=== PATIENT | male | born 1970 | race Caucasian/White ===

== ENCOUNTER 2020-05-06 12:00 | Inpatient (IN) | payer SELFPAY ==
[2020-05-06] VITALS (9 sets, daily range): BP systolic 132–162; BP diastolic 88–110; PULSE 108–123; RESP 17–20; TEMP 36.5–36.9; O2SAT 93–98; BMI 44.0
--- NOTE | 2020-05-06 12:21 | W.ED.NAVMDI ---
HPI - Nausea/Vomiting/Diarrhea General: Chief complaint: Nausea/Vomiting/Diarrhea Stated complaint: n/v/d Time Seen by Provider: 05/06/20 12:13 History of Present Illness: HPI Narrative: This patient is a 50-year-old male presenting today with abdominal pain, vomiting, diarrhea since Thursday. He said he started feeling poorly Thursday evening after eating some leftover [place] fried chicken. It was only a day old but he thought maybe it had given him food poisoning. He has been having vomiting and diarrhea ever since then and has not been able to keep anything down since Thursday evening. Sometimes he just has dry heaves other times throws up a significant amount. There is no blood in the emesis or in the stool. There is no black tarry stools. He was having some severe lower abdominal pain across his entire lower abdomen last night but this morning threw up a large amount and said the pain went away after that. He had his appendix out as a child. He has not had any other abdominal surgeries. He does not have a primary care physician and does not normally take any medications. He does use chewing tobacco and drinks a lot of coffee. He has not had either since Thursday. He went to urgent care on Thursday and was given omeprazole and ondansetron. He does not feel like they are helping at all. He denies fever and says he has been sweating but that is normal for him. MD elicited complaint: nausea, vomiting, diarrhea and abdominal pain Onset (ago): day(s) (5) Associated nausea: Yes Associated abdominal pain: Yes Location of pain: RLQ and LLQ Severity: moderate Quality: cramping and aching Exacerbating factors: eating and movement Relieving factors: vomiting Associated symtoms: Reports nausea; Denies change in vision, chest pain, fatigue, headache(s) or malaise Review of Systems General: Reports: 10 or more systems reviewed and unremarkable except in HPI and below Const: Denies: fever(s), chills, fatigue or malaise Eyes: Denies: change in vision ENMT: Denies: odynophagia Card: Denies: chest pain or swelling of feet/ankles Resp: Denies: dyspnea, productive cough or non-productive cough GI: Reports: abdominal pain, nausea, vomiting, diarrhea and belching (Foul taste) : Denies: flank pain Musc: Denies: neck pain or back pain Skin/Breast: Denies: rash Neuro: Denies: headache(s), numbness in extremities or weakness in extremities Connor/Lymph: Denies: easy bruising or easy bleeding PFSH ED PFSH: Medical History Morbid obesity Surgical History History of appendectomy Family History Father CAD (coronary artery disease) Grandfather Diabetes Social History (Updated 05/06/20 @ 16:50 by Shira Mondragon MD) Smoking and tobacco status: never smoked Alcohol intake: current Alcohol intake frequency: holidays/special occasions only Substance/Drug Use: never Marital status: Physical Exam Const: COMMON NORMALS: patient oriented x3 and alert GENERAL APPEARANCE: ill appearing NUTRITIONAL APPEARANCE: obese OTHER: Pale, diaphoretic HENMT: HEAD & SCALP: normal to inspection FACE & SINUS: normal facial exam Eye: GENERAL EYE: appearance normal, both eyes and all related structures Neck/C-Spine: COMMON NORMALS: supple, no meningeal signs and no JVD Chest: COMMONS NORMALS: normal inspection of the chest Resp: COMMON NORMALS: normal respiratory effort, No use of accessory muscles and clear to auscultation bilaterally AUSCULTATION: clear to auscultation bilaterally Cardio: COMMON NORMALS: no JVD, regular rate, regular rhythm and No murmurs present (Cardio) RATE: regular rate and tachycardic (125) RHYTHM: regular rhythm GI: AUSCULTATION: Yes normoactive bowel sounds PALPATION: Yes Firmness to palpation present (GI) PERCUSSION: normal to percussion Back/Pelvis: COMMON NORMALS: thoracic and lumbar spine normal to inspection Extremity: COMMON NORMALS: normal to inspection Neuro: COMMON NORMALS: patient oriented x3, moves all extremities, no focal motor deficits and no sensory deficits noted SENSORIUM/ORIENTATION: Yes alert MENINGEAL SIGNS: Yes no meningeal signs Psych: COMMON NORMALS: mental status grossly normal, cooperative and normal affect Skin: COMMON NORMALS: no rashes or lesions noted and turgor normal GENERAL SKIN EXAM: no rashes or lesions noted and turgor normal Course ED course: The patient looked somewhat better on my reassessment just prior to admission. He had some color back in his face but still was having nausea and discomfort. His heart rate is still above 100, around 110. Blood pressure remains on the high side. CT showed inflammation in the small bowel with partial small bowel obstruction versus ileus. I spoke with Dr. Benitez who felt it would be a medical admission. I spoke with Dr. Mondragon who will admit but would like Dr. Benitez to consult. The patient requested something to drink and I did let him have some sips of water. I darty given Rocephin for presumed UTI. He has now had Zofran and Flagyl ordered. He has had 2 L of fluid. He had Zofran and then Reglan. He continues to decline pain medication. Reevaluation(s): Reevaluation #1: Patient sitting up in a chair next to the bed due to discomfort in his low back. He said he is starting to feel more pressure and discomfort in his abdomen and still feels like he is can vomit. Heart rate is still 115 after the first bag of fluids. Second bag is been ordered. Urinalysis is consistent with a UTI or Guido. Rocephin has been ordered. I am not sure that fully explains the patient's symptoms I am to get a CAT scan to make sure that there is not something else going on. Vital Signs: Vital signs: Vital Signs Temperature 97.8 F 05/06/20 17:47 Pulse Rate 112 H 05/06/20 17:47 Respiratory Rate 20 H 05/06/20 17:47 Blood Pressure 134/95 05/06/20 17:47 Pulse Oximetry 95 05/06/20 17:47 MDM - Nausea/Vomiting/Diarrhea Lab Data: Labs: Lab Results 05/06/20 05/06/20 05/06/20 Range/Units 12:38 12:38 12:38 WBC 6.4 (4.0-10.0) 10^3/ uL RBC 6.15 H (4.1-5.3) 10^6/u L Hgb 17.9 H (11.7-16.6) g/dL Hct 53.7 H (42.0-52.0) % MCV 87.3 (80-94) fL MCH 29.1 (28.0-34.0) pg MCHC 33.3 (30.0-36.0) g/dL RDW 12.5 (12.1-15.1) % Plt Count 310 (130-400) 10^3/c mm MPV 10.3 (7.4-10.4) fL Neut % (Auto) 62.2 % Lymph % (Auto) 15.7 % Jerome % (Auto) 20.4 % Eos % (Auto) 0.6 % Baso % (Auto) 0.8 % Neut # (Auto) 4.0 (1.8-7.7) 10^3/u L Lymph # (Auto) 1.0 (0.8-4.8) 10^3/u L Jerome # (Auto) 1.3 H (0.2-0.9) 10^3/u L Eos # (Auto) 0.0 (0.0-0.8) 10^3/u L Baso # (Auto) 0.1 (0.0-0.1) 10^3/u L Nucleated RBC % (a uto) 0 % Nucleated RBCs # 0.0 /100WBC Sodium 132 L (136-145) mmol/L Potassium 3.9 (3.5-5.1) mmol/L Chloride 92 L (98-107) mmol/L Carbon Dioxide 23 (22-29) mmol/L Anion Gap 20.9 H (5-19) BUN 18 (6-20) mg/dL Creatinine 1.5 H (0.7-1.2) mg/dL GFR Calculation 49.5 L (90-130) mL/min Glucose 152 H (65-115) mg/dL Calculated Osmolal ity 273 L (285-295) mOsm/k g Lactate 1.8 (0.5-2.2) mmol/L Calcium 10.6 H (8.5-10.5) mg/dL Total Bilirubin 1.1 (0.15-1.2) mg/dL AST 27 (0-40) U/L ALT 65 H (0-41) U/L Alkaline Phosphata se 80 (40-130) IU/L Total Protein 8.1 (6.6-8.7) g/dL Albumin 4.7 (3.5-5.2) g/dL Globulin 3.4 (1.3-4.6) g/dL Lipase 64 H (13-60) U/L Urine Color (Yellow) Urine Appearance (CLEAR) Urine pH (5-7) Ur Specific Gravit y (1.005-1.030) Urine Protein (Negative) Urine Glucose (UA) (Normal) Urine Ketones (Negative) Urine Blood (Negative) Urine Nitrate (Negative) Urine Bilirubin (NEGATIVE) Urine Urobilinogen (Negative) mg/dL Ur Leukocyte Haley ase (Negative) Urine RBC (0-2) /hpf Urine WBC (0-5) /hpf Ur Squamous Epith Cells (0-5) Amorphous Sediment Urine Bacteria (NONE) Hyaline Casts Fine Granular Cast s /lpf Urine Mucus 05/06/20 Range/Units 13:07 WBC (4.0-10.0) 10^3/ uL RBC (4.1-5.3) 10^6/u L Hgb (11.7-16.6) g/dL Hct (42.0-52.0) % MCV (80-94) fL MCH (28.0-34.0) pg MCHC (30.0-36.0) g/dL RDW (12.1-15.1) % Plt Count (130-400) 10^3/c mm MPV (7.4-10.4) fL Neut % (Auto) % Lymph % (Auto) % Jerome % (Auto) % Eos % (Auto) % Baso % (Auto) % Neut # (Auto) (1.8-7.7) 10^3/u L Lymph # (Auto) (0.8-4.8) 10^3/u L Jerome # (Auto) (0.2-0.9) 10^3/u L Eos # (Auto) (0.0-0.8) 10^3/u L Baso # (Auto) (0.0-0.1) 10^3/u L Nucleated RBC % (a uto) % Nucleated RBCs # /100WBC Sodium (136-145) mmol/L Potassium (3.5-5.1) mmol/L Chloride (98-107) mmol/L Carbon Dioxide (22-29) mmol/L Anion Gap (5-19) BUN (6-20) mg/dL Creatinine (0.7-1.2) mg/dL GFR Calculation (90-130) mL/min Glucose (65-115) mg/dL Calculated Osmolal ity (285-295) mOsm/k g Lactate (0.5-2.2) mmol/L Calcium (8.5-10.5) mg/dL Total Bilirubin (0.15-1.2) mg/dL AST (0-40) U/L ALT (0-41) U/L Alkaline Phosphata se (40-130) IU/L Total Protein (6.6-8.7) g/dL Albumin (3.5-5.2) g/dL Globulin (1.3-4.6) g/dL Lipase (13-60) U/L Urine Color Kylah (Yellow) Urine Appearance Cloudy (CLEAR) Urine pH 6 (5-7) Ur Specific Gravit y 1.025 (1.005-1.030) Urine Protein 2+ H (Negative) Urine Glucose (UA) Trace H (Normal) Urine Ketones Negative (Negative) Urine Blood 2+ H (Negative) Urine Nitrate Negative (Negative) Urine Bilirubin 1+ H (NEGATIVE) Urine Urobilinogen 1 H (Negative) mg/dL Ur Leukocyte Haley ase Negative (Negative) Urine RBC None (0-2) /hpf Urine WBC 10-15 H (0-5) /hpf Ur Squamous Epith Cells 0-4 H (0-5) Amorphous Sediment Not Reportable Urine Bacteria 2+ H (NONE) Hyaline Casts 40-55 H Fine Granular Cast s 15-25 H /lpf Urine Mucus 2+ Discharge Plan Discharge Admit Provider: Shira Mondragon Discharge Date/Time: 05/06/20 17:01 Coding Level of Care Code ED Surveyor Geophysical Prospecting for Chg Fwd Exam Comprehensive
[2020-05-06] MEDS: ondansetron 2 mg/ML SDV 2 mL 4 MG IVP ×2 (12:43→19:11)
[2020-05-06] MEDS: sodium chloride 0.9% 1,000 ML 999 ML IV ×2 (12:43→14:00)
[2020-05-06 12:45] LABS: Basophils # 0.1 10^3/uL (0.0-0.1); Basophils % 0.8 %; Eosinophils % 0.6 %; Hematocrit 53.7 % (42.0-52.0); Hemoglobin 17.9 g/dL (11.7-16.6); Lymphocytes % 15.7 %; Mean Corpuscular HGB Conc 33.3 g/dL (30.0-36.0); Mean Corpuscular Hemoglobin 29.1 pg (28.0-34.0); Mean Corpuscular Volume 87.3 fL (80-94); Mean Platelet Volume 10.3 fL (7.4-10.4); Monocytes # 1.3 10^3/uL (0.2-0.9); Monocytes % 20.4 %; Neutrophils % 62.2 %; Nucleated Red Blood Cells % 0 %; Platelet Count 310 10^3/cmm (130-400); Red Blood Count 6.15 10^6/uL (4.1-5.3); Red Cell Distribution Width 12.5 % (12.1-15.1); White Blood Count 6.4 10^3/uL (4.0-10.0)
[2020-05-06 13:11] LABS: Alanine Aminotransferase 65 U/L (0-41); Albumin Level 4.7 g/dL (3.5-5.2); Alkaline Phosphatase 80 IU/L (40-130); Anion Gap 20.9 (5-19); Aspartate Amino Transferase 27 U/L (0-40); Blood Urea Nitrogen 18 mg/dL (6-20); Calcium 10.6 mg/dL (8.5-10.5); Carbon Dioxide 23 mmol/L (22-29); Chloride 92 mmol/L (98-107); Globulin 3.4 g/dL (1.3-4.6); Glomerular Filtration Rate 49.5 mL/min (90-130); Glucose 152 mg/dL (65-115); Lactate (Lactic Acid level) 1.8 mmol/L (0.5-2.2); Lipase 64 U/L (13-60); Osmolality Calculated 273 mOsm/kg (285-295); Potassium 3.9 mmol/L (3.5-5.1); Sodium 132 mmol/L (136-145); Total Bilirubin 1.1 mg/dL (0.15-1.2); Total Protein 8.1 g/dL (6.6-8.7)
[2020-05-06 13:34] LABS: Add Urine Microscopic? YES; Bilirubin Urine 1+ (NEGATIVE); Blood Urine 2+ (Negative); Glucose Urine UA Trace (Normal); Ketones Urine Negative (Negative); Leukocyte Esterase Urine Negative (Negative); Nitrate Urine Negative (Negative); Protein Urine 2+ (Negative); Specific Gravity, Urine 1.025 (1.005-1.030); Urine Appearance Cloudy (CLEAR); Urine Color Amber (Yellow); Urobilinogen Urine 1 mg/dL (Negative); pH Urine 6 (5-7)
[2020-05-06 13:38] LABS: Hyaline Casts Urine 40-55
[2020-05-06 13:39] LABS: Bacteria Urine 2+; Mucus Urine 2+; Squamous Epithelial Cell Urine 0-4 (0-5)
[2020-05-06 13:40] LABS: Add Urine Culture? Yes; Fine Granular Casts Urine 15-25 /lpf
--- NOTE | 2020-05-06 13:57 | CTR_ITS ---
PROCEDURE INFORMATION: Exam: CT Abdomen And Pelvis With Contrast Exam date and time: 05/06/2020 2:16 PM Age: 50 years old Clinical indication: Abdominal pain; Localized; Prior surgery; Surgery date: 6+ months; Surgery type: Appy; Patient HX: C/O n/v/d and mid abd pain; Additional info: Abdominal pain, fever TECHNIQUE: Imaging protocol: Computed tomography of the abdomen and pelvis with intravenous contrast. Axial, coronal and sagittal reformatted images were created and reviewed. Radiation optimization: All CT scans at this facility use at least one of these dose optimization techniques: automated exposure control; mA and/or kV adjustment per patient size (includes targeted exams where dose is matched to clinical indication); or iterative reconstruction. Contrast material: VISI 320; Contrast volume: 95 ml; Contrast route: INTRAVENOUS (IV); COMPARISON: [place] [id number] 08/22/2013 3:14 PM RADIATION DOSE METRICS: Total DLP (mGy-cm): 2136.1 FINDINGS: Liver: Mild hepatomegaly. Diffuse hepatic steatosis. Gallbladder and bile ducts: Small amount of dependent hyperattenuation in the gallbladder, possibly secondary to sludge and/or small stones. Pancreas: Unremarkable. Spleen: Unremarkable. Adrenals: Unremarkable. Kidneys and ureters: Indeterminate 1.5 cm low-density left renal lesion. No radiodense calculi. No hydronephrosis. Stomach and bowel: Submucosal fat deposition in the distal ileum, consistent with chronic inflammation. Multiple mildly dilated loops of small bowel with air-fluid levels and somewhat gradual transition to decompressed small bowel in the right mid abdomen, where there is mild associated small bowel wall thickening. No pneumatosis. Appendix: Normal. Intraperitoneal space: No free fluid. No organized fluid collection. No free air. Vasculature: Mild atherosclerotic disease. No aneurysm or dissection. Mild engorgement of the mesenteric vasculature. Lymph nodes: No pathologically enlarged lymph nodes. Bladder: Mild circumferential urinary bladder wall thickening, likely secondary to underdistention. Reproductive: Unremarkable. Bones/joints: No acute osseous abnormality. Osteopenia. Degenerative changes. Soft tissues: Unremarkable. Other findings: Elevated left hemidiaphragm. CT/CT abdomen pelvis w con* [id number] IMPRESSION: 1. Acute on chronic nonspecific enteritis with resultant partial small bowel obstruction versus ileus, as described above. 2. Additional findings, as above. Radiation Dose CTDIVOL = (mGy): DLP = 2136.1 (mGy-cm)
[2020-05-06] MEDS: cefTRIAXone 1,000 MG in sodium chloride 0.9% (plus) 50 ML 100 MG IV (14:01)
[2020-05-06] MEDS: metoclopramide 5 mg/mL SDV 2 mL 10 MG IVP (14:04)
--- NOTE | 2020-05-06 14:09 | PC.NURSE ---
DR ZAFAR IN TO SEE PT, PLAN OF CARE DISCUSSED. PT VERBALIZES UNDERSTANDING OF UPCOMING CT SCAN. ANTIBIOTICS INFUSING.
[2020-05-06] MEDS: iodixanol 320 mg/mL 100mL Btl IV (14:31)
[2020-05-06] MEDS: metroNIDAZOLE IV 500 MG/100 ML PREMIX 100 MG IV (15:45)
[2020-05-06] MEDS: ciprofloxacin 400 MG/200 ML PREMIX 200 MG IV ×2 (15:45→18:16)
--- NOTE | 2020-05-06 16:16 | PC.NURSE ---
HOSPITALIST IN WITH PT, EXPLAINING ADMISSION. PT APREHENSIVE ABOUT ADMISSION, ASSURANCE GIVEN.
--- NOTE | 2020-05-06 16:32 | PM.HP ---
Providers/Chief Complaint Admitting Physician: Shira Mondragon MD Primary Care Provider: Garfield Lawson MD Chief Complaint: n/v/d History of Present Illness Rashel Virk JR is a 50 year old male with PMHx of Morbid obesity, presents from home accompanied by his for evaluation of ongoing diffuse abdominal pain, nausea, vomiting, diarrhea since Thursday. He reports eating leftover [facility] chicken on Thursday night and feeling somewhat crampy thinking that the food did not agree with him. He ate a meal alone but on Thursday night family had shared the meal. He then developed diarrhea, increased abdominal discomfort, nausea and dry heaves. On he then started having vomiting. convinced him to go to the urgent care clinic on Thursday where his symptoms attributed to gastroenteritis and he was prescribed Zofran and omeprazole. His symptoms continued and in fact he had more episodes of vomiting and diarrhea on Thursday which prompted him to come to the ER today for evaluation. He denies having had any fever/chills, blood in his urine or stool or vomitus. He has been unable to tolerate oral intake though he has tried to sip on water. His abdominal discomfort is aggravated by movement. Prior to the onset of his symptoms he was in his usual state of health. He tends to be quite active and works with his hands typically but over the past few days has felt so poorly he has not been able to do much. His is present at bedside during my evaluation in the ER. Work-up so far shows white count of 6.4, hemoglobin of 17.9, sodium of 132, BUN of 18, creatinine of 1.5, blood glucose of 252, ALT of 65, lipase of 64, urinalysis is positive for pyuria and bacteria. CT of the abdomen and pelvis shows acute on chronic nonspecific enteritis with partial small bowel obstruction versus ileus. He is hypertensive with a blood pressure of 162/102, afebrile, mildly tachycardic. Heart rate has improved with administration of 2 L normal saline boluses. He has received a dose of ceftriaxone, ciprofloxacin and metronidazole. He has been admitted for further IV fluid hydration and IV antibiotic treatment. Surgery consult has been requested. Review of Systems Const: Reports: change in appetite (decreased appetite); Denies: fever(s) or chills Eyes: Denies: change in vision ENMT: Reports: dry mouth; Denies: odynophagia Card: Denies: chest pain, swelling of feet/ankles or lightheadedness Resp: Denies: dyspnea, productive cough or non-productive cough GI: Reports: abdominal pain, nausea, vomiting, diarrhea and bloating; Denies: hematemesis, coffee ground emesis, dysphagia, fecal incontinence or hematochezia : Denies: dysuria, urinary frequency or hematuria Musc: Denies: back pain Skin/Breast: Denies: rash Neuro: Denies: numbness in extremities or weakness in extremities Psych: Denies: anxiety Medications/Allergies Home Medications Medication Instructions Recorded Confirmed Last Taken Type omeprazole 40 mg capsule,delayed 40 mg PO DAILY 7 Days #7 cap 05/04/20 05/06/20 05/06/20 05:30 Rx release ondansetron HCl 4 mg tablet 4 mg PO Q8H PRN #20 tab 05/04/20 05/06/20 05/06/20 05:30 Rx Tums See Rx Instructions .ROUTE .COMPLEX 05/06/20 05/06/20 Unknown History Allergies Allergy/AdvReac Type Severity Reaction Status Date / Time No Known Allergies Allergy Verified 05/06/20 12:38 PFSH Acute PFSH: Medical History Morbid obesity Surgical History History of appendectomy Family History Father CAD (coronary artery disease) Grandfather Diabetes Social History (Updated 05/06/20 @ 16:50 by Shira Mondragon MD) Smoking and tobacco status: never smoked Alcohol intake: current Alcohol intake frequency: holidays/special occasions only Substance/Drug Use: never Marital status: Vitals/I&O/Wt Last Vital Signs Temp 98.3 F 05/06/20 12:15 Pulse 109 H 05/06/20 15:21 Resp 18 05/06/20 15:21 BP 162/102 05/06/20 15:21 Pulse Ox 95 05/06/20 15:21 Weight last 48 hrs Weight 139.253 kg Physical Exam Const: COMMON NORMALS: no acute distress and patient oriented x3 GENERAL APPEARANCE: cooperative and comfortable NUTRITIONAL APPEARANCE: obese morbidly obese ORIENTATION/CONSCIOUSNESS: Yes awake HENMT: COMMON NORMALS: normocephalic, atraumatic, hearing grossly normal bilaterally and moist oral mucous membranes HEAD & SCALP: normocephalic and atraumatic Eye: COMMON NORMALS: Equal, round and reactive pupils present, EOMs intact bilaterally and conjunctivae normal CONJUNCTIVA: Yes conjunctivae normal PUPIL: Yes Equal, round and reactive pupils present Neck/C-Spine: COMMON NORMALS: full ROM GENERAL: Yes normal visual inspection and Yes trachea midline Resp: COMMON NORMALS: normal respiratory effort, No retractions, No use of accessory muscles and clear to auscultation bilaterally EFFORT & INSPECTION: Yes able to speak in complete sentences, Yes symmetric chest movement and No tachypneic AUSCULTATION: clear to auscultation bilaterally Cardio: COMMON NORMALS: regular rate, regular rhythm, S1 normal heart sound present, S2 normal heart sound present and No murmurs present (Cardio) RATE: regular rate RHYTHM: regular rhythm HEART SOUNDS: S1 normal heart sound present and S2 normal heart sound present GI: COMMON NORMALS: Normal to inspection, nondistended, normoactive bowel sounds present, Soft to palpation and non-tender PALPATION: Yes Soft to palpation Extremity: COMMON NORMALS: normal to inspection, full ROM and no clubbing, cyanosis or edema; negative for no pedal edema Neuro: COMMON NORMALS: patient oriented x3, moves all extremities, no focal motor deficits, no sensory deficits noted and gait normal Psych: COMMON NORMALS: mental status grossly normal, Normal thought process present, cooperative, normal affect and speech normal SPEECH: Yes normal speech THOUGHT PROCESS: Normal thought process present Skin: COMMON NORMALS: no rashes or lesions noted, no jaundice, no petechiae and no mottling GENERAL SKIN EXAM: no rashes or lesions noted Data : 05/06/20 12:38 05/06/20 12:38 A&P Assessment and plan (1) Enteritis: -with abdominal pain, N/V, diarrhea -noted on imaging -no leukocytosis, afebrile -monitor vital signs -received dose of flagyl and ciprofloxacin as well as ceftriaxone; continue ciprofloxacin and flagyl -stool studies ordered -IVF hydration -lipase-64, ALT-65 with otherwise normal LFTs Status: Acute (2) Partial small bowel obstruction: -noted on imaging -conservative management for now: NPO, IVF hydration, antiemetics and pain control as needed -Surgery consult requested Status: Acute (3) Morbid obesity: -BMI-44 kg/m2 Status: Chronic Additional A&P Information -Dehydration secondary to N/V, poor oral intake: on IVF -Acute kidney injury; likely secondary to dehydration: on IVF, baseline Cr wnl; avoid nephrotoxins, renally dose meds -Polycythemia; likely secondary to dehydration; repeat labs after hydration -UTI: UA positive for pyuria and bacteria; f/u urine cx; on Ciprofloxacin -GI ppx with PPI -DVT ppx with heparin -Dispo: home -Code status: FULL code Attestations Medical Necessity Statement*: Rashel Virk JR's hospital stay will require greater than 2 midnights for management of enteritis with partial small bowel obstruction with associated dehydration, needs IVF hydration, IV antibiotics. Time Spent in Patient Care: Greater than 35 minutes (>than 50% of time spent in counselling and/or direct pt care on unit). Coding Level of Care Code Acute Glaze Sprayer for [facility] Diagnoses Enteritis K52.9 Partial small bowel obstruction K56.600 Morbid obesity E66.01
[2020-05-06] MEDS: heparin 5,000 unit/mL INJ 1 mL 5000 UNIT SUBCUT (18:16)
[2020-05-06] MEDS: sodium chlor 0.9% + KCl 20 mEq 20 MEQ/1,000 ML BAG 125 MEQ IV (18:16)
--- NOTE | 2020-05-06 21:11 | PC.NURSE ---
pt will large green liq emesis at this time.
[2020-05-06] MEDS: morphine 4 mg/mL SDV 1 mL 2 MG IVP (22:07)
[2020-05-07] VITALS: BP 141/94; PULSE 106; RESP 20; TEMP 36.7; O2SAT 93
[2020-05-07] MEDS: metroNIDAZOLE IV 500 MG/100 ML PREMIX 100 MG IV ×3 (01:18→16:35)
[2020-05-07] MEDS: sodium chlor 0.9% + KCl 20 mEq 20 MEQ/1,000 ML BAG 125 MEQ IV ×3 (03:35→16:36)
[2020-05-07 04:00] VITALS: BP 125/89; PULSE 109; RESP 20; TEMP 36.6; O2SAT 93
[2020-05-07 04:52] LABS: Basophils % 0.6 %; Eosinophils % 0.8 %; Hematocrit 46.1 % (42.0-52.0); Hemoglobin 15.4 g/dL (11.7-16.6); Lymphocytes # 0.7 10^3/uL (0.8-4.8); Lymphocytes % 13.7 %; Mean Corpuscular HGB Conc 33.4 g/dL (30.0-36.0); Mean Corpuscular Volume 89.7 fL (80-94); Mean Platelet Volume 10.9 fL (7.4-10.4); Monocytes # 1.1 10^3/uL (0.2-0.9); Neutrophils # 3.4 10^3/uL (1.8-7.7); Neutrophils % 64.3 %; Nucleated Red Blood Cells % 0 %; Platelet Count 241 10^3/cmm (130-400); Positive M 1; Red Blood Count 5.14 10^6/uL (4.1-5.3); Red Cell Distribution Width 12.5 % (12.1-15.1); White Blood Count 5.3 10^3/uL (4.0-10.0)
[2020-05-07 05:06] LABS: Alanine Aminotransferase 52 U/L (0-41); Albumin Level 3.8 g/dL (3.5-5.2); Alkaline Phosphatase 67 IU/L (40-130); Anion Gap 18.8 (5-19); Aspartate Amino Transferase 21 U/L (0-40); Blood Urea Nitrogen 21 mg/dL (6-20); Calcium 9.2 mg/dL (8.5-10.5); Carbon Dioxide 22 mmol/L (22-29); Chloride 99 mmol/L (98-107); Globulin 3.2 g/dL (1.3-4.6); Glomerular Filtration Rate 58.4 mL/min (90-130); Glucose 134 mg/dL (65-115); Magnesium 2.1 mg/dL (1.7-2.3); Osmolality Calculated 281 mOsm/kg (285-295); Potassium 3.8 mmol/L (3.5-5.1); Sodium 136 mmol/L (136-145); Total Bilirubin 0.9 mg/dL (0.15-1.2)
[2020-05-07 05:13] LABS: Thyroid Stimulating Hormone 3.25 uIU/mL (0.27-4.20)
[2020-05-07 05:35] LABS: Estmated Average Glucose 111; Hemoglobin A1C 5.5 % (4.0-6.0)
[2020-05-07] MEDS: heparin 5,000 unit/mL INJ 1 mL 5000 UNIT SUBCUT ×2 (05:54→16:34)
[2020-05-07 08:00] VITALS: BP 133/84; PULSE 104; RESP 20; TEMP 36.8; O2SAT 96
[2020-05-07] MEDS: pantoprazole DR 40 mg Tablet PO (09:51)
--- NOTE | 2020-05-07 10:17 | PC.CHAP ---
Pastoral Care Encounter/Spiritual Assessment Type of Contact [] Declined wetland scientist visit [] Patient/Family/Request visit [] Outpatient visit [] Follow-up visit [] Physician referral [] Code/Alert [x] Routine visit [] Staff referral [] Actively dying [] Patient sleeping [] Family support [] [] Out of room [] Palliative care [] [] Receiving care in room [] Pre-surgical visit [] Trauma [] Long length of stay [] ICU visit [] Other: Relational/Emotional Strength [] Patient feels connected with others/family/visitors/staff [] Distress [] Loneliness/isolation [] Abandonment Spirituality of Patient [] Person of Lizette [] Attends Buddhism of their Lizette [] Believes in Prayer [] Reads Bible or Oriental Orthodox materials [] There are Spiritual issues to be addressed Assistant District Attorney Interventions [x] Prayer [x] Active listening [x] Non-anxious presence [x] Spiritual/emotional support [] Crisis/trauma care [] Spiritual counseling [] Bereavement support [] Provided bereavement packet [] Provided Bible/devotional materials [] Provided toy/stuffed animal, coloring book to patient or family member [] Provided Communion [] Anointing/[place] [] Salvation [x] Completed spiritual assessment [] Other: Impact on Illness or Injury [] Angry [] Fearful [] Anxious [] Often cries [] Exhaustion [] Unable to work [] Unable to attend sikh [] Unable to walk/stand [] Unable to read [] Unable to drive [] Unable to eat/drink [] Unable to sleep [] Unable to be with family [] Patient intubated [] Other: Summary Patient resting- setting up in chair. Time spent with patient 5 min
[2020-05-07 11:41] VITALS: BP 139/93; PULSE 93; RESP 20; TEMP 36.6; O2SAT 97
--- NOTE | 2020-05-07 14:41 | P.PN_ITS ---
Subjective Subjective: Interval history: He is doing slightly better. Not a whole lot of appetite. Some intermittent belching. Overnight had diarrhea, although a stool sample was not collected. At this time has not yet had any repeat bowel movements. Feels like he may go sometime soon. He understands to let the nursing staff know to collect a sample if he needs to go. Vitals/I&O/Wt Last Vital Signs Temp 97.8 F 05/07/20 11:41 Pulse 93 05/07/20 11:41 Resp 20 H 05/07/20 11:41 BP 139/93 05/07/20 11:41 Pulse Ox 97 05/07/20 11:41 05/06/20 05/07/20 05/07/20 22:59 06:59 14:59 Intake Total 0 / 0 1100 / 1100 1267.5 / 1267.5 Output Total 1000 / 1000 Balance -1000 / -1000 1100 / 100 1267.5 / 1267.5 Weight last 48 hrs Weight 139.253 kg Physical Exam Const: COMMON NORMALS: no acute distress and patient oriented x3 NUTRITIONAL APPEARANCE: obese HENMT: COMMON NORMALS: oropharynx normal Neck/C-Spine: COMMON NORMALS: no JVD Resp: COMMON NORMALS: normal respiratory effort and clear to auscultation bilaterally AUSCULTATION: clear to auscultation bilaterally Cardio: COMMON NORMALS: no JVD, regular rhythm, S1 normal heart sound present, S2 normal heart sound present and No murmurs present (Cardio) RHYTHM: regular rhythm HEART SOUNDS: S1 normal heart sound present and S2 normal heart sound present GI: COMMON NORMALS: Soft to palpation and non-tender INSPECTION: Yes abdom inal distension and Yes central obesity AUSCULTATION: Yes Hypoactive bowel sounds present PALPATION: Yes Soft to palpation Extremity: COMMON NORMALS: no joint enlargement and no pedal edema Neuro: COMMON NORMALS: patient oriented x3 and moves all extremities Skin: COMMON NORMALS: no rashes or lesions noted GENERAL SKIN EXAM: no rashes or lesions noted Data : 05/07/20 04:00 05/07/20 04:00 Micro: Microbiology 05/06/20 13:07 Urine Culture - Preliminary Urine,Clean Catch A&P Assessment and plan (1) Enteritis: Feeling perhaps slightly better. Appears this may be after eating a day old [employer] chicken. Diarrhea overnight. Currently without any additional bowel movements. Some belching. No gas from below. Belly is soft, somewhat distended, without pain. He was seen by surgery. Advanced to clear liquid diet. Appreciate r ecommendations. Stool studies so far uncollected. Asked that he notify nursing staff if he needs to go so they may be collected. Discussed concern for infection, due to which at this time continue antibiotics. All his questions were answered to his satisfaction. Status: Acute (2) Partial small bowel obstruction: This appears perhaps secondary to ileus. No obvious transition point reported by the radiologist. Appreciate surgical evaluation. Status: Acute (3) Morbid obesity: -BMI-44 kg/m2 Status: Chronic Additional A&P Information -Dehydration secondary to N/V, poor oral intake: on IVF. Clear liquid diet as tolerating per surgery. -Acute kidney injury: with some improvement today. Creatinine down to 1.3. Likely secondary to dehydration. Continue to monitor. Avoid dehydration. -Polycythemia; likely secondary to dehydration; resolved. -UTI: UA positive for pyuria and bacteria. Continue on Ciprofloxacin. Preliminary urine culture negative. Attestations Medical Necessity Statement*: Continue admission for assessment of management of enteritis, inability to tolerate food or drink by mouth, partial small bowel obstruction, UTI, acute kidney injury. 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
--- NOTE | 2020-05-07 15:14 | P.CONIM_ITS ---
Providers/Reason For Consult Consulting Physican/Specialty*: Dequan Palacios Reason for Consult*: Partial bowel obstruction Attending Physician: Dequan Palacios Primary Care Provider: Garfield Lawson MD History of Present Illness History of Present Illness Rashel Virk JR is a 50 year old male who presented to the ER with 4-day history of abdominal pain, nausea and vomiting associated cramping pain. Patient states that he had a similar episode a few poisoning in the past. Patient denies any hematemesis hematochezia or melena. No prior colonoscopy. Today he feels a bit better though still had some loose stools overnight. A CT scan showed enteritis causing partial bowel obstruction versus ileus Review of Systems General: Reports: 10 or more systems reviewed and unremarkable except in HPI and below Meds/Allergies Home Medications and Allergies Home Medications Medication Instructions Recorded Confirmed Last Taken Type omeprazole 40 mg capsule,delayed 40 mg PO DAILY 7 Days #7 cap 05/04/20 05/06/20 05/06/20 05:30 Rx release ondansetron HCl 4 mg tablet 4 mg PO Q8H PRN #20 tab 05/04/20 05/06/20 05/06/20 05:30 Rx Tums See Rx Instructions .ROUTE .COMPLEX 05/06/20 05/06/20 Unknown History Allergies Allergy/AdvReac Type Severity Reaction Status Date / Time No Known Allergies Allergy Verified 05/06/20 12:38 Current Medications Current Medications Generic Name Dose Route Start Last Admin Trade Name Freq PRN Reason Stop Dose Admin Heparin Sodium (Beef Lung) 5,000 unit 05/06/20 17:47 05/07/20 05:54 Heparin SUBCUT 5,000 unit Q12H DEL Administration Potassium Chloride/Sodium Chloride 20 meq in 1,000 mls @ 125 mls/hr 05/06/20 17:47 05/07/20 09:53 Sodium Chlor 0.9% + Kcl 20 Meq IV 125 mls/hr .Q8H DEL Administration Metronidazole 500 mg in 100 mls @ 100 mls/hr 05/07/20 00:00 05/07/20 09:52 Flagyl Iv IV 100 mls/hr Q8H DEL Administration Protocol Morphine Sulfate 2 mg 05/06/20 17:47 05/06/20 22:07 Morphine IVP 2 mg Q4H PRN Administration SEVERE PAIN Ondansetron HCl 4 mg 05/06/20 17:47 05/06/20 19:11 Zofran IVP 4 mg Q6H PRN Administration vomiting, or N/V if npo Pantoprazole Sodium 40 mg 05/07/20 09:00 05/07/20 09:51 Protonix PO 40 mg DAILY DEL Administration PFSH Acute PFSH: Medical History Morbid obesity Surgical History History of appendectomy Family History Father CAD (coronary artery disease) Grandfather Diabetes Social History Smoking and tobacco status: never smoked Alcohol intake: current Alcohol intake frequency: holidays/special occasions only Substance/Drug Use: never Marital status: Vitals/I&O/Wt Last Vital Signs Temp 97.8 F 05/07/20 11:41 Pulse 93 05/07/20 11:41 Resp 20 H 05/07/20 11:41 BP 139/93 05/07/20 11:41 Pulse Ox 97 05/07/20 11:41 05/07/20 05/07/20 05/07/20 06:59 14:59 22:59 Intake Total 1100 / 1100 1267.5 / 1267.5 Balance 1100 / 100 1267.5 / 1267.5 Weight last 48 hrs Weight 307 lb Physical Exam Narrative: EXAM NARRATIVE: HEENT: Normocephalic Eye: Sclera /conjunctiva normal Respiratory and chest: Bilateral clear breath sounds on auscultation Cardiovascular: Normal S1 and S2 heart sounds Abdomen: Soft to palpation, nontender, minimally distended Neurological: Oriented to place person and time Skin: Intact, no lesions appreciated on gross exam Data Micro: Micro: Microbiology 05/06/20 13:07 Urine Culture - Pr eliminary Urine,Clean Catch A&P Assessment and plan (1) Enteritis: 50-year-old male who presents with abdominal pain, nausea vomiting and diarrhea of 4 days duration. Based on the history the CT would suggest enteritis with ileus rather than a bowel obstruction. Patient can be managed medically with IV antibiotics. 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
[2020-05-07 15:39] VITALS: BP 125/85; PULSE 90; RESP 18; TEMP 36.9; O2SAT 96
[2020-05-07 20:00] VITALS: BP 133/92; PULSE 101; RESP 20; TEMP 36.6; O2SAT 95
[2020-05-08] VITALS: BP 137/85; PULSE 85; RESP 20; TEMP 36.9; O2SAT 96
[2020-05-08] MEDS: metroNIDAZOLE IV 500 MG/100 ML PREMIX 100 MG IV ×2 (01:16→08:50)
[2020-05-08 04:00] VITALS: BP 138/86; PULSE 86; RESP 20; TEMP 36.5; O2SAT 96
[2020-05-08 04:55] LABS: Basophils # 0.1 10^3/uL (0.0-0.1); Basophils % 1.2 %; Eosinophils # 0.1 10^3/uL (0.0-0.8); Hematocrit 41.2 % (42.0-52.0); Hemoglobin 13.5 g/dL (11.7-16.6); Lymphocytes # 1.4 10^3/uL (0.8-4.8); Lymphocytes % 27.6 %; Mean Corpuscular HGB Conc 32.8 g/dL (30.0-36.0); Mean Corpuscular Hemoglobin 29.7 pg (28.0-34.0); Mean Corpuscular Volume 90.5 fL (80-94); Mean Platelet Volume 10.1 fL (7.4-10.4); Monocytes # 0.8 10^3/uL (0.2-0.9); Neutrophils # 2.6 10^3/uL (1.8-7.7); Neutrophils % 51.2 %; Nucleated Red Blood Cells % 0 %; Platelet Count 248 10^3/cmm (130-400); Red Blood Count 4.55 10^6/uL (4.1-5.3); Red Cell Distribution Width 12.7 % (12.1-15.1); White Blood Count 5.1 10^3/uL (4.0-10.0)
[2020-05-08 05:15] LABS: Alanine Aminotransferase 40 U/L (0-41); Albumin Level 3.6 g/dL (3.5-5.2); Alkaline Phosphatase 59 IU/L (40-130); Anion Gap 15.1 (5-19); Aspartate Amino Transferase 18 U/L (0-40); Blood Urea Nitrogen 18 mg/dL (6-20); Calcium 8.9 mg/dL (8.5-10.5); Carbon Dioxide 25 mmol/L (22-29); Chloride 103 mmol/L (98-107); Globulin 2.5 g/dL (1.3-4.6); Glomerular Filtration Rate 70.9 mL/min (90-130); Glucose 97 mg/dL (65-115); Osmolality Calculated 284 mOsm/kg (285-295); Potassium 4.1 mmol/L (3.5-5.1); Sodium 139 mmol/L (136-145); Total Bilirubin 0.4 mg/dL (0.15-1.2); Total Protein 6.1 g/dL (6.6-8.7)
[2020-05-08 08:00] VITALS: BP 137/90; PULSE 82; RESP 16; TEMP 36.6; O2SAT 95
[2020-05-08] MEDS: pantoprazole DR 40 mg Tablet PO (08:50)
[2020-05-08] MEDS: heparin 5,000 unit/mL INJ 1 mL 5000 UNIT SUBCUT (08:50)
[2020-05-08] MEDS: sodium chlor 0.9% + KCl 20 mEq 20 MEQ/1,000 ML BAG 125 MEQ IV ×2 (08:55→10:46)
[2020-05-08 12:00] VITALS: BP 146/90; PULSE 83; RESP 16; TEMP 36.2; O2SAT 97
--- NOTE | 2020-05-08 13:00 | PC.NURSE ---
Per Dr Palacios, call lab and see if they can check for Cdiff from the stool sample that they already have in lab. engineering writer called lab and was told they can if order is in. engineering writer put order in to check for Cdiff
--- NOTE | 2020-05-08 13:23 | P.DS_ITS ---
Discharge Providers Date of Admission: 05/06/20 15:48 Date of Discharge: May 08, 2020 Attending Provider at Admission: Shira Mondragon MD Attending Provider at Discharge: Dequan Palacios Primary Care Provider: Garfield Lawson MD Diagnoses at Discharge Discharge Diagnosis (1) Enteritis: Status: Acute Reason for Visit Reason for Visit: n/v/d Hospital Course Hospital Course: Pleasant 50-year-old gentleman with history of obesity, was admitted due to complaint of 4 days of abdominal pain, nausea, vomiting, inability to tolerate food or drink, subsequently also with diarrhea. No hematochezia or melena were noted. He had no signs of sepsis. CT abdomen pelvis revealed enteritis with partial bowel obstruction or ileus. He was empirically treated with ciprofloxacin and flagyl. Was assessed by surgery and found not requiring acute intervention, with ileus likely responsible for some of the symptoms rather than obstruction. He gradually imrpoved with stool forming up. Today was comfortable taking some clear liquids. Denies abdmoinal pain. No further vomiting and resolution of eructation. Stool bacterial and parasite panels unremarkable. C. difficile study was requested and pending, although this is considered less likely. He is today feeling much better, and feels ready to return home, to slowly advance diet. His symptoms may have been secondary to ingestion of day old [facility] chicken. On additional discussion he states that he was repairing a broken sewage line in his house about a week previously. He does draw his water out of a well. His who lives with him has not been ill, although she mostly drinks coffee. Discussed with him that he may wish to have his well water tested, and he will reach out to health department to do so. For now he will boil any water for consumption. He states that his sewage line has been repaired. He does grill occasionally, although has not been doing so recently, and does not exercise safe food handling practices. As he has never had a colonoscopy, he is in addition to his primary care provider also referred to surgery for set up of elective evaluation. Physical Exam Const: COMMON NORMALS: no acute distress and patient oriented x3 HENMT: COMMON NORMALS: oropharynx normal Neck/C-Spine: COMMON NORMALS: no JVD Resp: COMMON NORMALS: normal respiratory effort and clear to auscultation bilaterally AUSCULTATION: clear to auscultation bilaterally Cardio: COMMON NORMALS: no JVD, regular rhythm, S1 normal heart sound present, S2 normal heart sound present and No murmurs present (Cardio) RHYTHM: regular rhythm HEART SOUNDS: S1 normal heart sound present and S2 normal heart sound present GI: COMMON NORMALS: Normal to inspection, nondistended, normoactive bowel sounds present, Soft to palpation and non-tender PALPATION: Yes Soft to palpation Extremity: COMMON NORMALS: no joint enlargement and no pedal edema Neuro: COMMON NORMALS: patient oriented x3 and moves all extremities Skin: COMMON NORMALS: no rashes or lesions noted GENERAL SKIN EXAM: no rashes or lesions noted Discharge Data Data Completed and Pending: Completed Studies During Hospitalization Category Date Time Status CT abdomen pelvis w con* [id number] Urge nt Cat Scan 05/06/20 13:57 Completed Pending at discharge Category Date Time Status CDIFF [Clostridio ides Difficile PCR ] Routine Lab 05/08/20 12:58 Ordered Complete Blood Co unt w/Auto AM LABS Lab 05/09/20 04:00 Ordered Complete Blood Co unt w/Auto AM LABS Lab 05/10/20 04:00 Ordered Comprehensive Met abolic Panel AM LA BS Lab 05/09/20 04:00 Ordered Comprehensive Met abolic Panel AM LA BS Lab 05/10/20 04:00 Ordered Labs from last 24 hours 05/08/20 05/08/20 04:04 04:04 WBC 5.1 RBC 4.55 Hgb 13.5 Hct 41.2 L MCV 90.5 MCH 29.7 MCHC 32.8 RDW 12.7 Plt Count 248 MPV 10.1 Neut % (Auto) 51.2 Lymph % (Auto) 27.6 [place] % (Auto) 16.0 Eos % (Auto) 2.0 Baso % (Auto) 1.2 Neut # (Auto) 2.6 Lymph # (Auto) 1.4 [place] # (Auto) 0.8 Eos # (Auto) 0.1 Baso # (Auto) 0.1 Nucleated RBC % (a uto) 0 Nucleated RBCs # 0.0 Sodium 139 Potassium 4.1 Chloride 103 Carbon Dioxide 25 Anion Gap 15.1 BUN 18 Creatinine 1.1 GFR Calculation 70.9 L Glucose 97 Calculated Osmolal ity 284 L Calcium 8.9 Total Bilirubin 0.4 AST 18 ALT 40 Alkaline Phosphata se 59 Total Protein 6.1 L Albumin 3.6 Globulin 2.5 Vitals: Last Vital Signs Temp 97.1 F L 05/08/20 12:00 Pulse 83 05/08/20 12:00 Resp 16 05/08/20 12:00 BP 146/90 05/08/20 12:00 Pulse Ox 97 05/08/20 12:00 Discharge Plan Discharge Patient Disposition: Home, Self-Care Condition: Stable Prescriptions: New ciprofloxacin HCl [Cipro] 500 mg tablet 500 mg PO BID Qty: 14 RF: 0 metronidazole [Flagyl] 500 mg tablet 500 mg PO Q8H 7 Days Qty: 21 RF: 0 Continued omeprazole 40 mg capsule,delayed release(DR/EC) 40 mg PO DAILY 7 Days Qty: 7 RF: 0 ondansetron HCl [Zofran] 4 mg tablet 4 mg PO Q8H PRN (Reason: nausea and vomiting) Qty: 20 RF: 0 Tums See Rx Instructions .ROUTE .COMPLEX RF: 0 Discharge Orders: Discharge Order (Routine); Ordered 05/08/20 Ordered By: Dequan Palacios Referrals: Brandon Benitez MD [Physician] - 6 Weeks (Follow up for elective colonoscopy.) Garfield Lawson MD [Primary Care Provider] - 4-7 days (Enteritis) Discharge Diet: Advance as tolerated and Full LIquid Discharge Activity: Increase activity as tolerated Activity Restrictions/Additional Instructions: Slowly advance diet as tolerating at home. If you start feeling unwell again, high fevers, severe abdominal pain, vomiting with inability to tolerate food or drink, please seek medical attention. Please exercise caution with your water source. Please arrange with health department for testing of well water to see if there could have been any contamination from the book sewer line. Please avoid eating any leftover fast food. When cooking as usual exercise safe food handling techniques especially while dealing with raw meat. 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
[2020-05-08 14:27] VITALS: BP 146/90; PULSE 83; RESP 16; TEMP 36.2; O2SAT 97
--- NOTE | 2020-05-08 14:56 | PC.NURSE ---
patient given to patient and patient verbalized understanding. patient notified family and is awaiting ride home.
[2020-05-08 15:46] VITALS: BP 146/90; PULSE 83; RESP 16; TEMP 36.2; O2SAT 97
== END 2020-05-08 15:47 | disposition home or self-care (01) | DRG 389 ==
LOC: ER 12:13 → CSU 15:56 → MEDSURG 17:37
PROVIDERS: Emergency Medicine; Admitting Provider Family Medicine; Visit Provider Internal Medicine
DX: K56.600 Partial intestinal obstruction, unspecified as to cause (principal); Z68.41 Body mass index [BMI] 40.0-44.9, adult; N17.9 Acute kidney failure, unspecified; K56.7 Ileus, unspecified; K52.9 Noninfective gastroenteritis and colitis, unspecified; E66.01 Morbid (severe) obesity due to excess calories; E86.0 Dehydration; D75.1 Secondary polycythemia
CPT/HCPCS: 12345; 36415; 74177; 80053; 81001; 83036; 83605; 83690; 83735; 84443; 85025; 87086; 87493; 87506; 96372; 96375; 99283; J0696; J0744; J1644; J2270; J2405; J2765; J7030; Q9967; S0030

== ENCOUNTER → 2020-06-27 14:20 | Outpatient (BNVA) | payer OTHER, SELFPAY | PROVIDERS: Visit Provider Nurse Practitioner Family | DX: J06.9 Acute upper respiratory infection, unspecified (principal); R68.83 Chills (without fever); Z20.828 Contact with and (suspected) exposure to other viral communicable diseases | CPT/HCPCS: 87635 ==

== ENCOUNTER 2021-07-26 10:44 | Outpatient (CLI) | payer OTHER, SELFPAY ==
[2021-07-26 11:05] VITALS: BP 162/119; PULSE 90; RESP 18; TEMP 36.5; O2SAT 95; BMI 43.0
[2021-07-26 11:57] VITALS: BP 152/98; PULSE 83; RESP 18; O2SAT 96
[2021-07-26 12:50] VITALS: BP 162/110; PULSE 86; RESP 18; TEMP 36.7; O2SAT 94
== END 2021-07-26 10:45 | disposition home or self-care (01) ==
LOC: OPS 10:46
PROVIDERS: Visit Provider Nurse Practitioner Family
DX: U07.1 COVID-19 (principal)
CPT/HCPCS: 96365